=== PATIENT | male | born 1945 | race Hispanic/Latino ===

== ENCOUNTER 2021-07-26 11:05 | Outpatient (RCR) | payer MEDICARE ==
[~2021-07-26 11:05] MED LIST: TRYPSIN/BALSAM PERU/CASTOR OIL ONE
[2021-07-26] MEDS ORDERED: TRYPSIN/BALSAM PERU/CASTOR OIL ONE (12:58)
== END 2021-08-03 ==
LOC: WCC 11:05
PROVIDERS: ATTEND Internal Medicine Infectious Disease
DX: I87.312 Chronic venous hypertension (idiopathic) with ulcer of left lower extremity (principal); L97.328 Non-pressure chronic ulcer of left ankle with other specified severity; I87.2 Venous insufficiency (chronic) (peripheral); I79.8 Other disorders of arteries, arterioles and capillaries in diseases classified elsewhere; I10 Essential (primary) hypertension; K75.81 Nonalcoholic steatohepatitis (NASH); E78.5 Hyperlipidemia, unspecified; R26.81 Unsteadiness on feet
CPT/HCPCS: 36415; 82948

== ENCOUNTER 2021-08-27 10:06 | Outpatient (RCR) | payer MEDICARE ==
[~2021-08-27 10:06] MED LIST changes: +LIDOCAINE VISC 2% SOLN 15 ML UDC ONE
[2021-08-27] MEDS ORDERED: COLLAGENASE OINTMENT 30 GM TUBE ONE (12:51)
[2021-08-27] MEDS ORDERED: LIDOCAINE VISC 2% SOLN 15 ML UDC ONE (12:51)
== END 2021-09-02 ==
LOC: WCC 10:06
PROVIDERS: ATTEND Internal Medicine Infectious Disease
DX: I87.312 Chronic venous hypertension (idiopathic) with ulcer of left lower extremity (principal); L97.328 Non-pressure chronic ulcer of left ankle with other specified severity; L97.828 Non-pressure chronic ulcer of other part of left lower leg with other specified severity; I87.2 Venous insufficiency (chronic) (peripheral); I79.8 Other disorders of arteries, arterioles and capillaries in diseases classified elsewhere; I10 Essential (primary) hypertension; E78.5 Hyperlipidemia, unspecified; K57.52 Diverticulitis of both small and large intestine without perforation or abscess without bleeding; K75.81 Nonalcoholic steatohepatitis (NASH); R26.81 Unsteadiness on feet

== ENCOUNTER 2021-10-01 11:02 | Outpatient (RCR) | payer MEDICARE | END 2021-10-03 | LOC: WCC 11:02 | PROVIDERS: ATTEND Internal Medicine Infectious Disease | DX: I87.312 Chronic venous hypertension (idiopathic) with ulcer of left lower extremity (principal); L97.828 Non-pressure chronic ulcer of other part of left lower leg with other specified severity; L97.328 Non-pressure chronic ulcer of left ankle with other specified severity; I79.8 Other disorders of arteries, arterioles and capillaries in diseases classified elsewhere; I87.2 Venous insufficiency (chronic) (peripheral); I10 Essential (primary) hypertension; E78.5 Hyperlipidemia, unspecified; K57.81 Diverticulitis of intestine, part unspecified, with perforation and abscess with bleeding; K57.52 Diverticulitis of both small and large intestine without perforation or abscess without bleeding; R26.81 Unsteadiness on feet ==

== ENCOUNTER 2021-11-19 16:25 | Outpatient (RCR) | payer MEDICARE ==
[~2021-11-19 16:25] MED LIST changes: +AMMONIUM LACTATE 12% LOTION 225GM BTL ONE; -LIDOCAINE VISC 2% SOLN 15 ML UDC ONE; +MINERAL OIL/PETROLAT/GLYCERI 6OZ BTL ONE; -TRYPSIN/BALSAM PERU/CASTOR OIL ONE
== END 2021-12-03 ==
LOC: WCC 16:25
PROVIDERS: ATTEND Internal Medicine Infectious Disease
DX: I87.312 Chronic venous hypertension (idiopathic) with ulcer of left lower extremity (principal); L97.328 Non-pressure chronic ulcer of left ankle with other specified severity; L97.828 Non-pressure chronic ulcer of other part of left lower leg with other specified severity; I79.8 Other disorders of arteries, arterioles and capillaries in diseases classified elsewhere; I87.2 Venous insufficiency (chronic) (peripheral); K57.52 Diverticulitis of both small and large intestine without perforation or abscess without bleeding; I10 Essential (primary) hypertension; E78.5 Hyperlipidemia, unspecified; K75.81 Nonalcoholic steatohepatitis (NASH); R26.81 Unsteadiness on feet